=== PATIENT | female | born 1975 | race Two or more races ===

== ENCOUNTER → 2021-04-22 | Outpatient (CLI) | payer BC ==
[2021-04-22 12:38] LABS: Basophils # (auto) 0 10 ^3/uL (0-0.2); Basophils % (auto) 0.3 % (0.0-2.0); Eosinophils # (auto) 0.2 10 ^3/uL (0-0.8); Eosinophils % (auto) 2.2 % (0.0-7.0); Hematocrit 38.2 % (36.0-46.0); Hemoglobin 12.5 g/dL (12.2-16.2); Lymphocytes % (auto) 17.7 % (10.0-50.0); Mean Corpuscular Hemoglobin 28.8 pg (28.0-32.0); Mean Corpuscular Hgb Conc. 32.8 g/dL (32.0-36.0); Mean Corpuscular Volume 87.7 fL (80.0-100.0); Monocytes # (auto) 0.4 10 ^3/uL (0-1.3); Monocytes % (auto) 3.8 % (0.0-12.0); Neutrophils # (auto) 8.8 10 ^3/uL (1.6-8.6); Nucleated Red Blood Cells % 0.1 %; Red Blood Cells 4.36 10^6/uL (4.0-5.20); White Blood Cell 11.5 10^3/uL (4.4-10.8)
[2021-04-22 13:07] LABS: Albumin 3.4 g/dL (3.4-5.0); BUN/Creatinine Ratio 8.2; Bilirubin, Total 0.4 mg/dL (0.2-1.0); Calcium 9.8 mg/dL (8.5-10.1); Total Protein 7.2 g/dL (6.4-8.2)
== END | disposition home or self-care (01) ==
LOC: LAB 08:59
PROVIDERS: ATTEND Student in an Organized Health Care Education/Training Program
DX: Z00.00 Encounter for general adult medical examination without abnormal findings (principal); F31.81 Bipolar II disorder
CPT/HCPCS: 36415; 80053; 80061; 80178; 82274; 82670; 83036; 84443; 85025

== ENCOUNTER → 2021-04-29 | Outpatient (CLI) | payer BC ==
[2021-04-29 10:51] LABS: Follicle Stimulating Hormone 8.54 IU/L (SEE BELOW)
[2021-04-29 12:17] LABS: Leuteinizing Hormone 7.9 IU/L
== END | disposition home or self-care (01) ==
LOC: LAB 07:25
PROVIDERS: ATTEND Obstetrics & Gynecology
DX: E28.2 Polycystic ovarian syndrome (principal)
CPT/HCPCS: 36415; 82670; 83001; 83002; 84403; 84443

== ENCOUNTER 2021-07-08 12:30 | Day surgery (SDC) | payer BC ==
[2021-07-06 09:01] LABS: Basophils # (auto) 0 10 ^3/uL (0-0.2); Basophils % (auto) 0.3 % (0.0-2.0); Eosinophils # (auto) 0.2 10 ^3/uL (0-0.8); Hemoglobin 12.5 g/dL (12.2-16.2); Lymphocytes # (auto) 2.6 10 ^3/uL (0.4-5.4); Lymphocytes % (auto) 31.4 % (10.0-50.0); Mean Corpuscular Hemoglobin 29.3 pg (28.0-32.0); Mean Corpuscular Hgb Conc. 33.8 g/dL (32.0-36.0); Mean Corpuscular Volume 86.6 fL (80.0-100.0); Monocytes # (auto) 0.3 10 ^3/uL (0-1.3); Neutrophils # (auto) 5.1 10 ^3/uL (1.6-8.6); Neutrophils % (auto) 62.3 % (37.0-80.0); Nucleated Red Blood Cells % 0.1 %; Red Blood Cells 4.27 10^6/uL (4.0-5.20); Red Cell Distribution Width 12.7 % (11.8-14.3); White Blood Cell 8.2 10^3/uL (4.4-10.8)
[2021-07-06 09:18] LABS: INR 0.94 (0.9-1.15); Partial Thromboplastin Time 25.9 sec (23.6-33.0)
[2021-07-06 09:37] LABS: Calcium 9.4 mg/dL (8.5-10.1); Potassium 4.5 mmol/L (3.5-5.1)
[2021-07-06 09:43] LABS: Albumin 3.2 g/dL (3.4-5.0); BUN/Creatinine Ratio 10.2; Bilirubin, Total 0.4 mg/dL (0.2-1.0); Total Protein 7.2 g/dL (6.4-8.2)
[~2021-07-08] VITALS: Ht 157.5 cm; Wt 74.8 kg
[~2021-07-08 12:30] MED LIST: ALPR0.5T PO; BUPR200T2 PO; DICY10CA PO; METF-370 PO; OME20GT PO; ZIPR80CA37 PO
[2021-07-08] MEDS: fentaNYL CITRATE 100 MCG/2 ML VL ONE ×3 (13:05→13:11)
[2021-07-08] MEDS: diphenhdrAMINE HCL 50 MG/1 ML VL ONE ×2 (13:05→13:08)
[2021-07-08] MEDS: MIDAZOLAM HCL 5 MG/ML-1ML VIAL ONE ×3 (13:05→13:11)
[2021-07-08 13:38] VITALS: BP 131/82
[2021-07-13] MEDS ORDERED: LITH300T PO (16:30)
== END 2021-07-08 13:45 | disposition home or self-care (01) ==
LOC: GI 12:30
PROVIDERS: ATTEND Internal Medicine Gastroenterology
DX: K52.9 Noninfective gastroenteritis and colitis, unspecified (principal); K64.8 Other hemorrhoids; K63.89 Other specified diseases of intestine; F31.9 Bipolar disorder, unspecified; Z98.890 Other specified postprocedural states; Z79.899 Other long term (current) drug therapy; Z90.710 Acquired absence of both cervix and uterus; Z90.89 Acquired absence of other organs; Z91.048 Other nonmedicinal substance allergy status; Z88.6 Allergy status to analgesic agent; Z80.1 Family history of malignant neoplasm of trachea, bronchus and lung; Z20.822 Contact with and (suspected) exposure to COVID-19
CPT/HCPCS: 36415; 45380; 80053; 85025; 85610; 85730; 88305; J1200; J2250; J3010; J7030; U0003; 99152

== ENCOUNTER 2021-07-15 12:45 | Day surgery (SDC) | payer BC ==
[2021-07-13 08:44] LABS: Basophils # (auto) 0 10 ^3/uL (0-0.2); Basophils % (auto) 0.3 % (0.0-2.0); Eosinophils # (auto) 0.2 10 ^3/uL (0-0.8); Eosinophils % (auto) 1.5 % (0.0-7.0); Hematocrit 35.8 % (36.0-46.0); Hemoglobin 12.1 g/dL (12.2-16.2); Lymphocytes # (auto) 2.6 10 ^3/uL (0.4-5.4); Lymphocytes % (auto) 24.6 % (10.0-50.0); Mean Corpuscular Hemoglobin 29.4 pg (28.0-32.0); Mean Corpuscular Hgb Conc. 33.8 g/dL (32.0-36.0); Monocytes # (auto) 0.4 10 ^3/uL (0-1.3); Monocytes % (auto) 4.2 % (0.0-12.0); Neutrophils # (auto) 7.3 10 ^3/uL (1.6-8.6); Neutrophils % (auto) 69.4 % (37.0-80.0); Red Blood Cells 4.11 10^6/uL (4.0-5.20); Red Cell Distribution Width 13.4 % (11.8-14.3); White Blood Cell 10.5 10^3/uL (4.4-10.8)
[2021-07-13 09:00] LABS: INR 0.93 (0.9-1.15); Partial Thromboplastin Time 25.1 sec (23.6-33.0)
[2021-07-13 09:25] LABS: Albumin 2.9 g/dL (3.4-5.0); Calcium 8.7 mg/dL (8.5-10.1); Potassium 3.7 mmol/L (3.5-5.1)
[2021-07-13 09:27] LABS: BUN/Creatinine Ratio 10.4; Bilirubin, Total 0.1 mg/dL (0.2-1.0); Total Protein 6.9 g/dL (6.4-8.2)
[~2021-07-15] VITALS: Ht 157.5 cm; Wt 74.8 kg
[~2021-07-15 12:45] MED LIST changes: +LITH300T PO; -OME20GT PO
[2021-07-15] MEDS ORDERED: LIDOCAINE VISCOUS 2% 15ML UD ONE (14:36)
[2021-07-15] MEDS ORDERED: diphenhdrAMINE HCL 50 MG/1 ML VL ONE (14:37)
[2021-07-15] MEDS: MIDAZOLAM HCL 5 MG/ML-1ML VIAL ONE ×3 (15:00→15:06)
[2021-07-15] MEDS: fentaNYL CITRATE 100 MCG/2 ML VL ONE ×2 (15:00→15:03)
[2021-07-15 16:20] VITALS: BP 124/75
== END 2021-07-15 16:20 | disposition home or self-care (01) ==
LOC: GI 12:45
PROVIDERS: ATTEND Internal Medicine Gastroenterology
DX: R10.13 Epigastric pain (principal); K22.10 Ulcer of esophagus without bleeding; K44.9 Diaphragmatic hernia without obstruction or gangrene; K29.50 Unspecified chronic gastritis without bleeding; K21.00 Gastro-esophageal reflux disease with esophagitis, without bleeding; K31.89 Other diseases of stomach and duodenum; F32.A Depression, unspecified; Z98.890 Other specified postprocedural states; Z79.899 Other long term (current) drug therapy; Z90.49 Acquired absence of other specified parts of digestive tract; Z98.891 History of uterine scar from previous surgery; Z90.710 Acquired absence of both cervix and uterus; Z91.048 Other nonmedicinal substance allergy status; Z20.822 Contact with and (suspected) exposure to COVID-19
CPT/HCPCS: 36415; 43239; 80053; 85025; 85610; 85730; 88305; 88342; J1200; J2250; J3010; J7030; U0003; 99152

== ENCOUNTER → 2022-03-31 | Outpatient (CLI) | payer BC ==
[2022-03-31 09:42] LABS: Basophils # (auto) 0 10 ^3/uL (0-0.2); Basophils % (auto) 0.5 % (0.0-2.0); Eosinophils # (auto) 0.1 10 ^3/uL (0-0.8); Eosinophils % (auto) 1.5 % (0.0-7.0); Hematocrit 42.7 % (36.0-46.0); Hemoglobin 14.2 g/dL (12.2-16.2); Lymphocytes # (auto) 2.9 10 ^3/uL (0.4-5.4); Lymphocytes % (auto) 33.1 % (10.0-50.0); Mean Corpuscular Hemoglobin 28.9 pg (28.0-32.0); Mean Corpuscular Hgb Conc. 33.2 g/dL (32.0-36.0); Monocytes # (auto) 0.4 10 ^3/uL (0-1.3); Monocytes % (auto) 4.3 % (0.0-12.0); Neutrophils # (auto) 5.2 10 ^3/uL (1.6-8.6); Neutrophils % (auto) 60.6 % (37.0-80.0); Nucleated Red Blood Cells % 0.1 %; Red Cell Distribution Width 13.3 % (11.8-14.3); Urine Bacteria FEW /hpf (None Seen); Urine Blood Negative /uL (Negative); Urine Specific Gravity 1.002 (1.001-1.035); Urine WBC 17 /hpf (0 - 5); Urine WBC Clumps PRESENT /hpf (None Seen); White Blood Cell 8.6 10^3/uL (4.4-10.8)
[2022-03-31 10:03] LABS: Albumin 3.7 g/dL (3.4-5.0); BUN/Creatinine Ratio 9.3; Calcium 9.6 mg/dL (8.5-10.1); Potassium 3.6 mmol/L (3.5-5.1)
[2022-03-31 10:12] LABS: Bilirubin, Total 0.3 mg/dL (0.2-1.0); Total Protein 7.5 g/dL (6.4-8.2)
== END | disposition home or self-care (01) ==
LOC: LAB 09:25
PROVIDERS: ATTEND Nurse Practitioner Family
DX: N18.31 Chronic kidney disease, stage 3a (principal); E78.1 Pure hyperglyceridemia
CPT/HCPCS: 36415; 80053; 80061; 81001; 82306; 84156; 84166; 85025

== ENCOUNTER → 2022-09-14 | Outpatient (CLI) | payer BC ==
[2022-09-14 10:09] LABS: Urine Bacteria MOD /hpf (None Seen); Urine Blood Negative /uL (Negative); Urine Hyaline Cast FEW /lpf (0 - 2); Urine Mucus FEW (None Seen); Urine Specific Gravity 1.012 (1.001-1.035); Urine WBC 348 /hpf (0 - 5); Urine WBC Clumps PRESENT /hpf (None Seen)
[2022-09-14 11:40] LABS: Albumin 3.4 g/dL (3.4-5.0); Potassium 3.9 mmol/L (3.5-5.1)
[2022-09-14 11:43] LABS: BUN/Creatinine Ratio 10.3 (10.0-20.0); Calcium 9.5 mg/dL (8.5-10.1); Phosphorus 2.8 mg/dL (2.5-4.90)
== END | disposition home or self-care (01) ==
LOC: LAB 09:51
PROVIDERS: ATTEND Nurse Practitioner Family
DX: N18.31 Chronic kidney disease, stage 3a (principal)
CPT/HCPCS: 36415; 80048; 80069; 81001; 82570

== ENCOUNTER → 2023-03-23 | Outpatient (CLI) | payer BC ==
[2023-03-23 09:14] LABS: Basophils # (auto) 0 10 ^3/uL (0-0.2); Basophils % (auto) 0.2 % (0.0-2.0); Eosinophils # (auto) 0.2 10 ^3/uL (0-0.8); Hematocrit 39.9 % (36.0-46.0); Hemoglobin 13.2 g/dL (12.2-16.2); Lymphocytes # (auto) 1.8 10 ^3/uL (0.4-5.4); Lymphocytes % (auto) 22.6 % (10.0-50.0); Mean Corpuscular Hemoglobin 29.3 pg (28.0-32.0); Mean Corpuscular Hgb Conc. 33.1 g/dL (32.0-36.0); Mean Corpuscular Volume 88.3 fL (80.0-100.0); Monocytes # (auto) 0.6 10 ^3/uL (0-1.3); Monocytes % (auto) 7.4 % (0.0-12.0); Neutrophils # (auto) 5.5 10 ^3/uL (1.6-8.6); Neutrophils % (auto) 67.8 % (37.0-80.0); Nucleated Red Blood Cells % 0.1 %; Red Blood Cells 4.52 10^6/uL (4.0-5.20); Red Cell Distribution Width 12.6 % (11.8-14.3); White Blood Cell 8.1 10^3/uL (4.4-10.8)
[2023-03-23 09:55] LABS: Creatinine, Urine 28.74 mg/dL (30.0-125.0)
[2023-03-23 09:56] LABS: Alanine Aminotransferase 10 U/L (7-40); Alkaline Phosphatase 57 U/L (46-116); Anion Gap 8 (5-15); BUN/Creatinine Ratio 8.7 (10.0-20.0); Blood Urea Nitrogen 10 mg/dL (9-23); Calcium 10.3 mg/dL (8.5-10.1); Carbon Dioxide 26 mmol/L (20-30); Chloride 103 mmol/L (98-107); Glucose 82 mg/dL (74-106); Potassium 4.1 mmol/L (3.5-5.1); Sodium 137 mmol/L (136-145); Triglycerides 186 mg/dL (< 150)
[2023-03-23 09:57] LABS: Albumin 4.5 g/dL (3.2-4.8); Aspartate Aminotransferase 13 U/L (13-40); LDL Cholesterol 106 mg/dL (< 100)
[2023-03-23 09:58] LABS: Bilirubin, Total 0.4 mg/dL (0.2-1.0); Cholesterol 185 mg/dL (< 200); HDL Cholesterol 55 mg/dL (40-59); Total Protein 7.4 g/dL (5.7-8.2)
== END | disposition home or self-care (01) ==
LOC: LAB 08:59
PROVIDERS: ATTEND Nurse Practitioner Family
DX: Z00.01 Encounter for general adult medical examination with abnormal findings (principal); N18.31 Chronic kidney disease, stage 3a; E78.5 Hyperlipidemia, unspecified
CPT/HCPCS: 36415; 80053; 80061; 82043; 82306; 82570; 84439; 84443; 85025

== ENCOUNTER → 2023-04-12 | Outpatient (CLI) | payer BC ==
[2023-04-12 10:20] LABS: Alkaline Phosphatase 51 U/L (46-116); Anion Gap 7 (5-15); Aspartate Aminotransferase 20 U/L (13-40); Calcium 9.8 mg/dL (8.5-10.1); Carbon Dioxide 26 mmol/L (20-30); Chloride 107 mmol/L (98-107); Potassium 4.3 mmol/L (3.5-5.1); Sodium 140 mmol/L (136-145)
[2023-04-12 10:21] LABS: BUN/Creatinine Ratio 8.2 (10.0-20.0); Blood Urea Nitrogen 9 mg/dL (9-23); Glucose 85 mg/dL (74-106)
[2023-04-12 10:23] LABS: Albumin 4.3 g/dL (3.2-4.8); Bilirubin, Total 0.3 mg/dL (0.2-1.0); Total Protein 7.1 g/dL (5.7-8.2)
[2023-04-12 11:59] LABS: Alanine Aminotransferase 10 U/L (7-40)
== END | disposition home or self-care (01) ==
LOC: LAB 09:12
DX: E83.52 Hypercalcemia (principal)
CPT/HCPCS: 36415; 80053; 83970

== ENCOUNTER → 2023-09-26 | Outpatient (CLI) | payer BC ==
[~2023-09-26] MED LIST changes: -ZIPR80CA37 PO; +ZIPR80CA43 PO
[2023-09-26 07:41] LABS: Basophils # (auto) 0 10 ^3/uL (0-0.2); Basophils % (auto) 0.4 % (0.0-2.0); Eosinophils # (auto) 0.2 10 ^3/uL (0-0.8); Eosinophils % (auto) 2.6 % (0.0-7.0); Hematocrit 37.3 % (36.0-46.0); Hemoglobin 12.9 g/dL (12.2-16.2); Lymphocytes # (auto) 3.2 10 ^3/uL (0.4-5.4); Lymphocytes % (auto) 33.8 % (10.0-50.0); Mean Corpuscular Hgb Conc. 34.7 g/dL (32.0-36.0); Mean Corpuscular Volume 86.5 fL (80.0-100.0); Monocytes # (auto) 0.4 10 ^3/uL (0-1.3); Monocytes % (auto) 4.7 % (0.0-12.0); Neutrophils # (auto) 5.5 10 ^3/uL (1.6-8.6); Neutrophils % (auto) 58.5 % (37.0-80.0); Nucleated Red Blood Cells % 0.1 %; Red Blood Cells 4.31 10^6/uL (4.0-5.20); Red Cell Distribution Width 12.5 % (11.8-14.3); White Blood Cell 9.5 10^3/uL (4.4-10.8)
[2023-09-26 08:19] LABS: Alanine Aminotransferase 11 U/L (7-40); Alkaline Phosphatase 48 U/L (46-116); Anion Gap 7 (5-15); Aspartate Aminotransferase 12 U/L (13-40); BUN/Creatinine Ratio 8.6 (10.0-20.0); Blood Urea Nitrogen 10 mg/dL (9-23); Calcium 9.5 mg/dL (8.7-10.4); Carbon Dioxide 23 mmol/L (20-30); Chloride 107 mmol/L (98-107); Cholesterol 186 mg/dL (< 200); Glucose 105 mg/dL (74-106); HDL Cholesterol 55 mg/dL (40-59); LDL Cholesterol 119 mg/dL (< 100); Potassium 4.6 mmol/L (3.5-5.1); Sodium 137 mmol/L (136-145); Triglycerides 151 mg/dL (< 150)
[2023-09-26 08:20] LABS: Bilirubin, Total 0.3 mg/dL (0.2-1.0); Total Protein 6.6 g/dL (5.7-8.2)
== END | disposition home or self-care (01) ==
LOC: LAB 07:12
PROVIDERS: ATTEND Nurse Practitioner Family
DX: E78.5 Hyperlipidemia, unspecified (principal); N18.31 Chronic kidney disease, stage 3a
CPT/HCPCS: 36415; 80053; 80061; 82043; 85025

== ENCOUNTER → 2024-03-27 | Outpatient (CLI) | payer BC ==
[2024-03-27 08:01] LABS: Basophils # (auto) 0 10 ^3/uL (0-0.2); Basophils % (auto) 0.5 % (0.0-2.0); Eosinophils # (auto) 0.4 10 ^3/uL (0-0.8); Eosinophils % (auto) 4.2 % (0.0-7.0); Hematocrit 40.5 % (36.0-46.0); Hemoglobin 13.7 g/dL (12.2-16.2); Lymphocytes # (auto) 2.8 10 ^3/uL (0.4-5.4); Lymphocytes % (auto) 33.1 % (10.0-50.0); Mean Corpuscular Hemoglobin 29.6 pg (28.0-32.0); Mean Corpuscular Hgb Conc. 33.7 g/dL (32.0-36.0); Mean Corpuscular Volume 87.7 fL (80.0-100.0); Monocytes # (auto) 0.4 10 ^3/uL (0-1.3); Monocytes % (auto) 4.6 % (0.0-12.0); Neutrophils # (auto) 4.8 10 ^3/uL (1.6-8.6); Neutrophils % (auto) 57.6 % (37.0-80.0); Platelet Count (auto) 241 10^3/uL (140-450); Red Blood Cells 4.61 10^6/uL (4.0-5.20); White Blood Cell 8.3 10^3/uL (4.4-10.8)
[2024-03-27 08:25] LABS: Alanine Aminotransferase 23 U/L (7-40); Alkaline Phosphatase 68 U/L (46-116); Anion Gap 9 (5-15); BUN/Creatinine Ratio 10.7 (10.0-20.0); Blood Urea Nitrogen 13 mg/dL (9-23); Calcium 10.3 mg/dL (8.7-10.4); Carbon Dioxide 25 mmol/L (20-31); Glucose 94 mg/dL (74-106); Potassium 4.1 mmol/L (3.5-5.1); Sodium 142 mmol/L (136-145)
[2024-03-27 08:26] LABS: Albumin 4.3 g/dL (3.2-4.8)
[2024-03-27 08:27] LABS: Bilirubin, Total 0.2 mg/dL (0.2-1.0); Chloride 108 mmol/L (98-107); Cholesterol 227 mg/dL (< 200); HDL Cholesterol 62 mg/dL (40-59); LDL Cholesterol 148 mg/dL (< 100); Total Protein 7.1 g/dL (5.7-8.2); Triglycerides 190 mg/dL (< 150)
[2024-03-27 08:31] LABS: Aspartate Aminotransferase 22 U/L (13-40)
== END | disposition home or self-care (01) ==
LOC: LAB 07:34
PROVIDERS: ATTEND Nurse Practitioner Family
DX: E78.5 Hyperlipidemia, unspecified (principal); N18.31 Chronic kidney disease, stage 3a; E55.9 Vitamin D deficiency, unspecified; R73.9 Hyperglycemia, unspecified
CPT/HCPCS: 36415; 80053; 80061; 82043; 82306; 83036; 84443; 85025

== ENCOUNTER 2024-09-26 07:18 | Outpatient (CLI) | payer BC ==
[2024-09-26 07:39] LABS: Hematocrit 39.1 % (36.0-46.0); Hemoglobin 13.5 g/dL (12.2-16.2); Mean Corpuscular Hemoglobin 29.8 pg (28.0-32.0); Mean Corpuscular Volume 86.5 fL (80.0-100.0); Nucleated Red Blood Cells % 0.0 %
[2024-09-26 08:00] LABS: Alanine Aminotransferase 39 U/L (7-40); Albumin 4.1 g/dL (3.2-4.8); Alkaline Phosphatase 71 U/L (46-116); Anion Gap 11 (5-15); BUN/Creatinine Ratio 12.4 (10.0-20.0); Blood Urea Nitrogen 14 mg/dL (9-23); Calcium 10.2 mg/dL (8.7-10.4); Carbon Dioxide 24 mmol/L (20-31); Chloride 105 mmol/L (98-107); Glucose 83 mg/dL (74-106); Potassium 4.3 mmol/L (3.5-5.1); Sodium 140 mmol/L (136-145); Total Protein 6.7 g/dL (5.7-8.2)
[2024-09-26 08:01] LABS: Bilirubin, Total 0.5 mg/dL (0.2-1.0); HDL Cholesterol 54 mg/dL (40-59)
[2024-09-26 08:08] LABS: Cholesterol 236 mg/dL (< 200); Triglycerides 165 mg/dL (< 150)
== END 2024-09-26 17:00 | disposition home or self-care (01) ==
LOC: LAB 07:18
PROVIDERS: ATTEND Nurse Practitioner Family
DX: I12.9 Hypertensive chronic kidney disease with stage 1 through stage 4 chronic kidney disease, or unspecified chronic kidney disease (principal); N18.31 Chronic kidney disease, stage 3a; E78.5 Hyperlipidemia, unspecified
CPT/HCPCS: 36415; 80053; 80061; 84443; 85025

== ENCOUNTER 2024-10-10 07:56 | Outpatient (CLI) | payer BC ==
[2024-10-10 08:27] LABS: Calcium 9.4 mg/dL (8.7-10.4); Chloride 106 mmol/L (98-107); Potassium 4.3 mmol/L (3.5-5.1); Sodium 139 mmol/L (136-145)
[2024-10-10 08:28] LABS: Anion Gap 10 (5-15); Carbon Dioxide 23 mmol/L (20-31)
[2024-10-10 08:33] LABS: BUN/Creatinine Ratio 12.5 (10.0-20.0); Blood Urea Nitrogen 16 mg/dL (9-23); Glucose 92 mg/dL (74-106)
[2024-10-10 09:02] LABS: Ferritin 81.8 ng/mL (10-291)
== END 2024-10-10 17:00 | disposition home or self-care (01) ==
LOC: LAB 07:56
PROVIDERS: ATTEND Nurse Practitioner Family
DX: N95.2 Postmenopausal atrophic vaginitis (principal); N95.9 Unspecified menopausal and perimenopausal disorder; R53.83 Other fatigue; E66.9 Obesity, unspecified
CPT/HCPCS: 36415; 80048; 82306; 82533; 82607; 82670; 82728; 84144; 84403; 84443; 84480; 86141

== ENCOUNTER → 2025-01-28 | Outpatient (CLI) | payer BC ==
[2025-01-28 08:27] LABS: Hematocrit 40.0 % (36.0-46.0); Hemoglobin 13.5 g/dL (12.2-16.2); Mean Corpuscular Hemoglobin 29.5 pg (28.0-32.0); Mean Corpuscular Volume 87.2 fL (80.0-100.0); Nucleated Red Blood Cells % 0.3 %
[2025-01-28 08:59] LABS: Alanine Aminotransferase 19 U/L (7-40); Albumin 4.4 g/dL (3.2-4.8); Alkaline Phosphatase 76 U/L (46-116); Anion Gap 12 (5-15); BUN/Creatinine Ratio 15.0 (10.0-20.0); Blood Urea Nitrogen 21 mg/dL (9-23); Calcium 9.7 mg/dL (8.7-10.4); Carbon Dioxide 24 mmol/L (20-31); Chloride 106 mmol/L (98-107); Glucose 86 mg/dL (74-106); HDL Cholesterol 54 mg/dL (40-59); Potassium 4.6 mmol/L (3.5-5.1); Sodium 142 mmol/L (136-145); Total Protein 7.7 g/dL (5.7-8.2)
[2025-01-28 09:00] LABS: Bilirubin, Total 0.3 mg/dL (0.2-1.0)
[2025-01-28 09:04] LABS: Cholesterol 220 mg/dL (< 200); Triglycerides 194 mg/dL (< 150)
[2025-01-28 10:19] LABS: Urine Protein, UAD Negative (Negative)
[2025-01-28 11:05] LABS: Microalb/Creat Ratio, Urine 4.00
== END | disposition home or self-care (01) ==
LOC: LAB 07:53
PROVIDERS: ATTEND Internal Medicine
DX: I12.9 Hypertensive chronic kidney disease with stage 1 through stage 4 chronic kidney disease, or unspecified chronic kidney disease (principal); E11.22 Type 2 diabetes mellitus with diabetic chronic kidney disease; N18.31 Chronic kidney disease, stage 3a; E11.69 Type 2 diabetes mellitus with other specified complication; E78.5 Hyperlipidemia, unspecified; R79.82 Elevated C-reactive protein (CRP); M25.50 Pain in unspecified joint; Z00.01 Encounter for general adult medical examination with abnormal findings
CPT/HCPCS: 36415; 80053; 80061; 81001; 82043; 82570; 83036; 84439; 84443; 85025; 85652; 86141; 86431

== ENCOUNTER 2025-03-04 10:09 | Outpatient (CLI) | payer BC ==
[2025-03-04 14:52] LABS: Alanine Aminotransferase 39 U/L (7-40); Albumin 4.3 g/dL (3.2-4.8); Alkaline Phosphatase 105 U/L (46-116); Anion Gap 15 (5-15); BUN/Creatinine Ratio 11.3 (10.0-20.0); Bilirubin, Total 0.3 mg/dL (0.2-1.0); Blood Urea Nitrogen 16 mg/dL (9-23); Calcium 9.8 mg/dL (8.7-10.4); Carbon Dioxide 20 mmol/L (20-31); Chloride 107 mmol/L (98-107); Creatine Kinase IFCC 68 U/L (34-145); Glucose 77 mg/dL (74-106); Potassium 3.9 mmol/L (3.5-5.1); Sodium 142 mmol/L (136-145); Total Protein 7.0 g/dL (5.7-8.2)
== END 2025-03-04 17:00 | disposition home or self-care (01) ==
LOC: LAB 10:09
PROVIDERS: ATTEND Internal Medicine
DX: E11.69 Type 2 diabetes mellitus with other specified complication (principal); E78.2 Mixed hyperlipidemia; N95.9 Unspecified menopausal and perimenopausal disorder
CPT/HCPCS: 36415; 80053; 82550; 82670; 84144; 84403